=== PATIENT | male | born 1955 | race Caucasian/White ===

== ENCOUNTER 2020-12-31 02:05 | Emergency (ER) | payer MEDICARE, OTHER ==
[~2020-12-31 02:05] MED LIST: ALPR0.25 PO; ATOR10TA PO; CITA10TA9 PO; HYDR1TAB PO; TRAZ-182 PO
[2020-12-31] MEDS ORDERED: IOHEXOL-300 100 ML VIAL IV ONE (02:39)
[2020-12-31] MEDS ORDERED: CT SWABBABLE VALVE TRANS SET 1 EA INFUS.SET MC ONE (02:39)
[2020-12-31] MEDS ORDERED: IV NS 0.9% 250 ML IV ONE (02:39)
--- NOTE | 2020-12-31 05:15 | NUR ---
BACK FROM CT
--- NOTE | 2020-12-31 05:30 | NUR ---
PLEASE REFER TO DOWN TIME NOTES AND FORM.
--- NOTE | 2020-12-31 05:35 | NUR ---
PT ALERT, ORIENTED AND RESPONSIVE. AMBULATORY. PO INTAKE TOLERATED WELL. MEDICALLY STABLE FOR D/.C PER MD
--- NOTE | 2020-12-31 06:42 | NUR ---
Patient discharged to home in stable condition. Written and verbal after care instructions given. Patient verbalizes understanding of instruction.IV removed. Catheter intact and site benign. Pressure and 4x4 applied to site. No bleeding noted.pt send to car by janice, tolerating well, potato picker by his girlfriend
[2020-12-31 06:43] VITALS: BP 134/78
[2021-01-01 04:38] LABS: CARBON DIOXIDE 27 mmol/L (21-32); CHLORIDE 101 mmol/L (98-107); SODIUM SERUM 139 mmol/L (136-145)
[2021-01-01 04:39] LABS: ALKALINE PHOSPHATASE 88 U/L (46-116); BILIRUBIN,DIRECT 0.1 mg/dL (0.0-0.2); BILIRUBIN,TOTAL 0.3 mg/dL (0.2-1.0); CREATININE 1.1 mg/dL (0.6-1.3); GLUCOSE 87 mg/dL (74-106); UREA NITROGEN, BLOOD 24 mg/dL (7-18)
[2021-01-01 04:40] LABS: ALANINE AMINOTRANSFERASE 35 U/L (12-78); ASPARTATE AMINOTRANSFERASE 30 U/L (15-37); LIPASE 150 U/L (73-393); SERUM AMMONIA < 10 umol/L (11-32); TOTAL PROTEIN, SERUM 7.1 g/dL (6.4-8.2)
[2021-01-01 04:41] LABS: WHITE BLOOD COUNT (AUTO) 5.7 K/uL (4.3-11.0)
[2021-01-01 04:42] LABS: HEMATOCRIT 41 % (39-51); HEMOGLOBIN 13.5 g/dL (13.5-17.5); LYMPHOCYTES % (AUTO) 25.2 % (20.0-44.0); MEAN CORPUSCULAR HGB CONC 33 g/dl (31.0-36.0); MEAN CORPUSCULAR VOLUME 98 fL (80-96); PLATELET COUNT (AUTO) 190 K/uL (150-450); RED BLOOD CELL COUNT(AUTO) 4.15 MIL/uL (4.5-6.0)
[2021-01-01 04:43] LABS: BASOPHILS % (AUTO) 0.5 % (0.0-2.0); EOSINOPHILS % (AUTO) 3.3 % (0.0-6.0)
== END 2020-12-31 06:45 | disposition home or self-care (01) ==
LOC: ER 03:57
DX: F10.129 Alcohol abuse with intoxication, unspecified (principal); R41.82 Altered mental status, unspecified; Y90.9 Presence of alcohol in blood, level not specified
CPT/HCPCS: 36415; 70450; 74177; 80048; 80076; 82140; 83690; 85025; 99285; J7050; Q9967